=== PATIENT | male | born 1960 | race African-American/Black ===

== ENCOUNTER 2018-12-24 21:48 | Inpatient (IN) ==
[2018-12-24] MEDS ORDERED: ADENOCARD ONE (21:57)
[2018-12-24] MEDS ORDERED: NS 1,000 ML ONE (22:01)
[2018-12-24] MEDS ORDERED: ADENOCARD IV ONE (22:02)
[2018-12-24] MEDS ORDERED: NS 1,000 ML IV ONE (22:04)
[2018-12-24] MEDS ORDERED: ASPIRIN ONE (22:05)
[2018-12-24] MEDS ORDERED: ASPIRIN PR ONE (22:06)
[2018-12-24] MEDS ORDERED: ASPIRIN PO ONE (22:06)
[2018-12-24 22:28] LABS: BASO# 0.03 X1000 (0.0-0.2); BASO% 0.4 % (0.0-0.8); EOS# 0.09 X1000 (0.0-0.7); EOS% 1.1 % (0.0-10.0); HEMATOCRIT 47.2 % (42.0-52.0); HEMOGLOBIN 16.3 g/dL (14.0-18.0); IMM GRAN# 0.02 X1000 (0.0-0.04); IMM GRAN% 0.2 % (0.0-0.5); LYMPH# 2.44 X1000 (1.2-3.4); LYMPH% 30.1 % (20.5-51.1); MCH 30.6 PG (27-31); MCHC 34.5 g/dL (33-37); MCV 88.6 FL (81-99); MONO# 0.61 X1000 (0.11-0.59); MONO% 7.5 % (1.7-9.3); MPV 9.6 FL (7.4-10.4); NEUT# 4.91 X1000 (1.4-6.5); NEUT% 60.7 % (42.2-75.2); PLT 256 X1000 (130-400); RBC 5.33 XMIL (4.7-6.1)
[2018-12-24 22:39] LABS: INR 0.85; PROTIME 12.1 Seconds (11.0-16.0); PTT 28.8 Seconds (22.3-41.8)
[2018-12-24 22:43] LABS: AGAP 12; ALBUMIN 4.4 g/dL (3.5-5.0); ALKALINE PHOSPHATASE 113 U/L (32-122); BUN 8 mg/dL (8-22); CALCIUM 9.2 mg/dL (8.8-10.2); CHLORIDE 99 mmol/L (98-107); COSMO 284; CREATININE 0.9 mg/dL (0.7-1.2); ESTIMATED GFR > 60; GLUCOSE 108 mg/dL (70-104); GOT 43 U/L (10-34); GPT 33 U/L (10-44); POTASSIUM 3.5 mmol/L (3.5-5.1); SODIUM 143 mmol/L (136-145); TCO2 32 mmol/L (25-35); TOTAL PROTEIN 6.8 g/dL (6.3-8.3)
[2018-12-24 22:47] LABS: CK PROFILE 207 U/L (24-204)
[2018-12-24 23:07] LABS: CK INDEX 1.3 (0.0-2.5); CK-MB 2.71 ng/mL (0.0-5.0)
[2018-12-25] MEDS ORDERED: ZOFRAN IV PRN (00:11)
[2018-12-25] MEDS ORDERED: MORPHINE IV PRN (00:12)
--- NOTE | 2018-12-25 00:13 | PROVIDER DOCUMENTATION ---
This chart was entered by Linda Martinez Scribe, acting as scribe for Jaylen Alfonso MD. HPI-Cardiac General - General Chief Complaint: Chest Pain Stated Complaint: CHEST PAIN Time Seen by Provider: 12/24/18 22:05 Source: patient Allergies/Adverse Reactions: Patient Allergies Allergy/AdvReac Type Severity Reaction Status Date / Time No Known Allergies Allergy Verified 12/24/18 22:01 Home Medications: Home Medication List Medication Instructions Recorded Confirmed Last Taken Type LISINOpril [Prinivil] 20 mg PO DAILY #30 tablet 08/26/15 11/04/18 06/13/16 Rx Metoprolol Succinate E.r. [Toprol 100 mg PO DAILY #30 tablet 08/26/15 11/04/18 0 06/13/16 Rx Xl] Furosemide [Lasix] 20 mg PO DAILY 07/24/16 11/04/18 Unknown History Ketorolac [Toradol] 10 mg PO Q6H PRN PRN 5 Days #20 tab 11/04/18 Unknown Rx - History of Present Illness-Cardiac Nature of Presenting Problem: Patient is a 58 year old male who presents to the ED with palpitations. Patient states feels like his heart is racing. Patient states chest pain and shortness of breath. Patient states history of SVT. Patient states symptoms started 2 hours prior to arrival. Location: reports: central Quality of Pain: reports: pressure Severity in ED: mild Onset/Duration: 1-3 hours ago (2 hours ago) Timing: still present Context/Activities at Onset: reports: light activity Modifying Factors: improves with: nothing Palpitation Quality: fast/pounding heart beat (fast) History of arrythmia: reports: SVT Recent use of:: reports: no stimulants Associated Symptoms: reports: shortness of breath Similar Symptoms Previously?: No Recently Seen Here or By Another Healthcare Provider: No Review of Systems - Adult - REVIEW OF SYSTEMS - ADULT Constitutional: reports: no symptoms reported Eyes: reports: no symptoms reported Ears, Nose, Mouth & Throat: reports: no symptoms reported Cardiovascular: reports: chest pain, palpitations. denies: heart murmur Respiratory: reports: shortness of breath. denies: cough, wheezing Gastrointestinal: reports: no symptoms reported Genitourinary: reports: no symptoms reported Musculoskeletal: reports: no symptoms reported Integumentary: reports: no symptoms reported Neurological: reports: no symptoms reported Psychiatric: reports: no symptoms reported Endocrine: reports: no symptoms reported Hematologic/Lymphatic: reports: no symptoms reported Allergic/Immunologic: reports: no symptoms reported All Other Systems: Reviewed and Negative Past History - Adult - PAST MEDICAL HISTORY-ADULT Review of Records: reports: Nursing Assessment Review, Medications Reviewed, Social history reviewed & non-contributory. Major Childhood Illnesses: reports: denies history Cardiovascular: reports: arrhythmia (svt), HTN Respiratory: reports: denies history Gastrointestinal: reports: denies history Obstetrical/Gynecological: reports: denies history Genitourinary: reports: denies history Musculoskeletal: reports: denies history Neurological: reports: denies history Psychiatric: reports: denies history Endocrine/Immune: reports: denies history Other Conditions: reports: denies history - PRIOR SURGERIES/PROCEDURES Surgical/Procedure History: reports: reviewed, not pertinent - PRIOR HOSPITALIZATIONS Prior Hospitalizations: reports: for other non-related - IMMUNIZATION STATUS Childhood Immunizations: See Nurse Assessment Flu Vaccine: See Nurse Assessment - FAMILY HISTORY Family History: reviewed, not pertinent - SOCIAL HISTORY Smoking: cigarettes (former) Substance Use: denies Physical Exam-General - PHYSICAL EXAM-ADULT Initial Vital Signs Reviewed: Yes - CONSTITUTIONAL General Appearance: alert, no apparent distress - RESPIRATORY Respiratory: chest non-tender, lungs clear, normal breath sounds - CARDIOVASCULAR Cardiovascular: normal peripheral pulses, tachycardia - GASTROINTESTINAL (ABDOMEN) Abdominal Exam: normal bowel sounds, non tender, soft - MUSCULOSKELETAL Extremity: non-tender, normal inspection - SKIN Integumentary: normal color, normal turgor, warm/dry - NEUROLOGIC Neurologic: grossly normal, no motor/sensory deficits - PSYCHIATRIC Psych/Mental Status: normal mood/affect, oriented x 3 - HEART Score HEART Score: History: Slightly Suspicious HEART Score: ECG: Non-Specific Repolarization Disturbance/LBBB/PM HEART Score: Age: 45-65 Years HEART Score: Risk Factors for Atherosclerotic Disease: 1 or 2 Risk Factors HEART Score: Troponin: < or = Normal Limit Total HEART Score:: 3 Progress - PLAN OF CARE/RESULTS Progress/Plan/Lab Results: Vital Signs - 8 hr 12/24/18 21:56 12/24/18 22:11 12/24/18 23:20 Temperature 98.0 F Pulse Rate 175 H 100 H 104 H Respiratory Rate 16 16 16 Blood Pressure 136/104 149/98 129/87 O2 Sat by Pulse Oximetry 95 97 98 Laboratory Results - last 24 hr 12/24/18 12/24/18 12/24/18 22:01 22:01 22:01 WBC 8.10 RBC 5.33 Hgb 16.3 Hct 47.2 MCV 88.6 MCH 30.6 MCHC 34.5 RDW Std Deviation 14.0 Plt Count 256 MPV 9.6 Immature Gran % (Auto) 0.2 Neut % (Auto) 60.7 Lymph % (Auto) 30.1 [place] % (Auto) 7.5 Eos % (Auto) 1.1 Baso % (Auto) 0.4 Immature Gran # (Auto) 0.02 Neut # (Auto) 4.91 Lymph # (Auto) 2.44 [place] # (Auto) 0.61 H Eos # (Auto) 0.09 Baso # (Auto) 0.03 PT INR PTT (Actin FS) Sodium 143 Potassium 3.5 Chloride 99 Carbon Dioxide 32 Anion Gap 12 BUN 8 Creatinine 0.9 Estimated GFR/1.73 m2 > 60 BUN/Creatinine Ratio 9 Glucose 108 H Calculated Osmolality 284 Calcium 9.2 Total Bilirubin 0.30 AST 43 H ALT 33 Alkaline Phosphatase 113 Creatine Kinase 207 H Creatine Kinase Index 1.3 CK-MB (CK-2) 2.71 Troponin T Ogr-U-Kpxprlmourc Pept 649 H Total Protein 6.8 Albumin 4.4 Globulin 2.0 Albumin/Globulin Ratio 2.0 12/24/18 12/24/18 22:01 22:01 WBC RBC Hgb Hct MCV MCH MCHC RDW Std Deviation Plt Count MPV Immature Gran % (Auto) Neut % (Auto) Lymph % (Auto) [place] % (Auto) Eos % (Auto) Baso % (Auto) Immature Gran # (Auto) Neut # (Auto) Lymph # (Auto) [place] # (Auto) Eos # (Auto) Baso # (Auto) PT 12.1 INR 0.85 PTT (Actin FS) 28.8 Sodium Potassium Chloride Carbon Dioxide Anion Gap BUN Creatinine Estimated GFR/1.73 m2 BUN/Creatinine Ratio Glucose Calculated Osmolality Calcium Total Bilirubin AST ALT Alkaline Phosphatase Creatine Kinase Creatine Kinase Index CK-MB (CK-2) Troponin T < 0.010 [id number] Pept Total Protein Albumin Globulin Albumin/Globulin Ratio Orders Category Date Time Status Admit - [facility] Routine AdmDCTranf 12/25/18 00:08 Active Cardiac Monitoring DIRECTED Care 12/24/18 22:07 Active Oxygen Therapy- ED Nursing DIRECTED Care 12/24/18 22:07 Active Saline Loc NOW Care 12/24/18 22:07 Active CHEST-1 VIEW [RAD] Stat Exams 12/24/18 22:52 Taken CBC WITH ELECTRONIC DIFF [HEME] Stat Lab 12/24/18 22:01 Completed CK PROFILE [SP CHEM] Stat Lab 12/24/18 22:01 Completed COMPREHENSIVE METABOLIC PANEL [CHEM] Stat Lab 12/24/18 22:01 Completed PRO B-NATRIURETIC PEPTIDE Stat Lab 12/24/18 22:01 Completed PROTIME WITH INR [COAG] Stat Lab 12/24/18 22:01 Completed PTT [COAG] Stat Lab 12/24/18 22:01 Completed TROPONIN T Q8HR Lab 12/25/18 05:00 Uncollected TROPONIN T Q8HR Lab 12/25/18 13:00 Uncollected TROPONIN T Q8HR Lab 12/25/18 21:00 Uncollected TROPONIN T Q8HR Lab 12/26/18 05:00 Uncollected TROPONIN T Q8HR Lab 12/26/18 13:00 Uncollected TROPONIN T Q8HR Lab 12/26/18 21:00 Uncollected TROPONIN T Stat Lab 12/24/18 22:01 Completed 0.9% Sodium Chloride Inj [Ns] 1,000 ml Med 12/24/18 22:01 Discontinued .ROUTE As directed 0.9% Sodium Chloride Inj [Ns] 1,000 ml Med 12/24/18 22:04 Discontinued IV 999 mls/hr Adenosine [Adenocard] Med 12/24/18 21:57 Discontinued 18 mg .ROUTE .STK-MED ONE Adenosine [Adenocard] Med 12/24/18 22:02 Discontinued 6 mg IV NOW ONE Aspirin Med 12/24/18 22:[address] NOW ONE Aspirin Med 12/24/18 22:05 Discontinued 325 mg .ROUTE .STK-MED ONE Aspirin Med 12/24/18 22:06 Discontinued 325 mg PO NOW ONE Morphine Med 12/25/18 00:12 Ordered 2 mg IV Q2H PRN PRN Ondansetron [Zofran] Med 12/25/18 00:11 Ordered 4 mg IV Q8H PRN PRN CP/SOB/Palp >45 yrs of Age Stat Oth 12/24/18 22:06 Ordered EKG [EKG] Stat Ther 12/24/18 22:07 Ordered Transfer/Admit Order [TRANSFER] Routine Transfer 12/25/18 00:10 Ordered Result Diagrams: 12/24/18 22:01 12/24/18 22:01 - REASSESSMENT Reassessment #1 Time Reassessed: 10:07 Status: improving (patient received 6 mg of Adenosine IV. patient's heart rate decreased to 101.) - EKG 1 Time of EKG reading by physician:: 21:58 EKG Read and Signed by:: Jaylen Alfonso EKG Interpretation (*Must complete 3 of following elements*): Abnormal (marked ST abnormality, possible inferior subendocardial injury) Rate: 176 Rhythm: supraventricular tachycardia [place]: right QRS: RBB (incomplete) Comments: septal infarct, age undetermined; 2 Time of EKG reading by physician:: 22:06 EKG Read and Signed by:: Jaylen Alfonso EKG Interpretation (*Must complete 3 of following elements*): Abnormal Rate: 104 Rhythm: sinus tachycardia [place]: right Comments: left atrial enlargement; cannot rule out anterior infarct, age undetermined - CONSULTS/PCP/HOSPITALIST Notification #1 *Consult/PCP/Hospitalist*: Dr. Brewer Time Discussed: 00:08 Reason/Comments: Dr. Alfonso consulted with Dr. Brewer about patient. Consult Disposition: Admit Departure - Departure Date of Disposition Decision: 12/25/18 Time of Disposition Decision: 00:09 DIAGNOSIS: SVT (supraventricular tachycardia), Chest pain Disposition: ADMITTED INPATIENT 09 Certified Medical Emergency: Emergent Condition: Good Referrals and Follow-Ups: None,PCP [Primary Care Provider] - - Critical Care Note This patient required my direct & personal management of CC.: Yes Total Time (mins): 31 Critical Care Statement: This patient required my direct personal management to treat or rule out processes, the absence of which, could potentiallly result in sudden, clinically significant life or limb threatening deterioration. Attestation - Physician/ ELIANA Attestation Patient care was provided by Advanced Practice Provider:: No The physician spent face to face time with patient:: Yes Advanced Practice Provider documentation review:: Supervising physician onsite and consulted in the evaluation and care of this patient. The physician did have a face to face encounter with the patient. This chart was documented by the indicated scribe, (Linda Martinez, Amber) and accurately reflects the services I performed and decisions made by me, Jaylen Alfonso MD, as attested by the provider's signature.
--- NOTE | 2018-12-25 07:23 | Diag Imaging Result Doc PS360 ---
CHEST-1 VIEW - 12/24/2018 INDICATION: cp COMPARISON: 11/04/2018, 11/19/2015 FINDINGS: The lungs are normally expanded and clear. Heart size and mediastinal contours are normal. No pneumothorax or pleural effusion. IMPRESSION: Negative exam. Electronically signed by Raúl Jones 12/25/2018 7:20 AM
[2018-12-25] MEDS: TOPROL XL PO SCH (09:32)
[2018-12-25] MEDS: PRINIVIL PO SCH (09:32)
[2018-12-25] MEDS: ASPIRIN PO SCH (09:33)
[2018-12-25] MEDS: LASIX PO SCH (09:33)
--- NOTE | 2018-12-25 10:00 | HISTORY AND PHYSICAL ---
PRIMARY CARE PHYSICIAN: [facility]. CHIEF COMPLAINT: Chest pain, shortness of breath, palpitations that began approximately 2 hours prior to arrival. HISTORY OF PRESENTING ILLNESS: This is a 58-year-old male who presents to [facility] ER with complaints of chest pain, shortness of breath and palpitations that began approximately 2 hours prior to arrival. He denied any radiating of his symptoms. He denied any nausea or diaphoresis, dizziness. When he arrived to the emergency room, we obtained an EKG that showed SVT at 176. His chest x-ray showed a negative exam. His cardiac enzymes x2 sets were negative. His heart score was 3, so he was admitted for further evaluation and treatment. PAST MEDICAL HISTORY: SVT and hypertension. PAST SURGICAL HISTORY: Knee surgery. FAMILY HISTORY: Reviewed and noncontributory. SOCIAL HISTORY: Currently lives alone. He is a half a pack a day smoker and has done so for 35 years. Drinks 1-1/2 pints of liquor on Wednesday, Wednesday and Sundays, but does not drink during the week and denies any illicit drug use. ALLERGIES: He has no known drug allergies. HOME MEDICATIONS: We will hold his Toradol p.r.n. We need to update and confirm all of his home medications and dosages. Lasix 20 mg p.o. daily, lisinopril 20 mg p.o. daily, and metoprolol 100 mg p.o. daily. LABORATORY DATA: Showed a white blood cell count of 8.10, hemoglobin 16.3, hematocrit 47.2, platelets 256,000. PT and INR of 12.1 and 0.85. Sodium of 143, potassium 3.5, chloride 99, CO2 32, BUN of 8, creatinine 0.9, glucose 108. Cardiac enzymes x2 sets were negative. ProBNP of 649. EKG showed SVT at 176 on arrival. IMAGING: Chest x-ray showed a negative exam. REVIEW OF SYSTEMS: He denied any fever, chills, blurred vision, dizziness. He was positive for chest pain, left-sided with palpitations and shortness of breath. Denied any cough, abdominal pain, constipation, diarrhea, burning or hurting with urination. PHYSICAL EXAMINATION: VITALS: On arrival, he had a temperature of 98 degrees, pulse was 175, respirations 16, blood pressure 136/104. Saturating 95% on room air. Currently, his pulse is 97 to 100. GENERAL: This is a 58-year-old male who is lying in the bed and answers questions appropriately. HEENT: Normocephalic, atraumatic. Normal ENT inspection. Oropharynx and nares are clear. EYES: Pupils are equal, round, reactive to light and accommodation. Extraocular movements are intact. NECK: Normal inspection. Normal range of motion. LUNGS: Clear to auscultation bilaterally with equal lung expansion and chest wall movement. HEART: Regular rate and rhythm at this time, but he did have SVT at 176 on arrival and was given adenosine 6 mg IV total. No murmurs, rubs, or gallops noted. ABDOMEN: Soft, nontender, nondistended. Bowel sounds are present x4 quadrants. MUSCULOSKELETAL: 5/5 strength x4 extremities. NEUROLOGICAL: The cranial nerves 2-12 appear grossly intact. ASSESSMENT: 1. Supraventricular tachycardia, resolved, now in normal sinus rhythm. 2. Chest pain, now resolved with resolving his SVT. 3. Hypertension. 4. Tobacco abuse. 5. Ethanol abuse. PLAN: 1. He was admitted to the Medical Unit at [place]. We will place on a healthy heart diet. Place on telemetry. 2. Aspirin 81 mg p.o. daily. We will continue his home medications. Place on morphine 2 mg IV q.2 hours p.r.n. Complete his troponin series for the 3 sets total. Check an echocardiogram in the a.m. and further orders after seen by attending. Dictated by ARNOL Manriquez for Edda Brewer MD cc: ARNOL Manriquez MD
--- NOTE | 2018-12-25 12:16 | HISTORY AND PHYSICAL ---
ADDENDUM: I saw the patient [id number] and fully agree with the assessment and plan of my nurse practitioner, Alexia Parrish. This is a 58-year-old gentleman who was admitted through the emergency room with paroxysmal supraventricular tachycardia, for which he had to receive adenosine with which it has been converted to sinus rhythm. He had chest pain at the time that has now resolved. He has history of hypertension and alcohol/tobacco abuse as well. He is admitted here at [facility] and we are going to give him aspirin and obtain serial cardiac enzymes to rule out any myocardial ischemic event. We will get an echocardiogram in the morning and he can probably be discharged home tomorrow if remains stable. cc: Edda Brewer MD
--- NOTE | 2018-12-25 17:21 | EKG Report ---
Test Performed on : 12/25/2018 09:13:07 AM Test Reason : PSVT Blood Pressure : / mmHG Vent. Rate : 085 BPM Atrial Rate : 085 BPM P-R Int : 138 ms QRS Dur : 108 ms QT Int : 386 ms P-R-T Axes : 071 092 046 degrees QTc Int : 459 ms Normal sinus rhythm. Possible Left atrial enlargement Rightward axis Borderline ECG When compared with ECG of 24-DEC-2018 22:06, (Unconfirmed) Previous ECG has undetermined rhythm, needs review Unconfirmed Result
--- NOTE | 2018-12-26 08:51 | EKG Report ---
Test Performed on : 12/24/2018 9:58:37 PM Test Reason : SDA Blood Pressure : / mmHG Vent. Rate : 176 BPM Atrial Rate : 178 BPM P-R Int : 000 ms QRS Dur : 112 ms QT Int : 276 ms P-R-T Axes : 000 106 -36 degrees QTc Int : 472 ms Supraventricular tachycardia. Rightward axis Incomplete right bundle branch block Septal infarct , age undetermined Marked ST abnormality, possible inferior subendocardial injury Abnormal ECG When compared with ECG of 19-NOV-2015 17:59, Significant changes have occurred Unconfirmed Result
--- NOTE | 2018-12-26 09:24 | EKG Report ---
Test Performed on : 12/24/2018 10:06:30 PM Test Reason : SDA Blood Pressure : / mmHG Vent. Rate : 104 BPM Atrial Rate : 104 BPM P-R Int : 154 ms QRS Dur : 102 ms QT Int : 370 ms P-R-T Axes : 063 098 033 degrees QTc Int : 486 ms Sinus tachycardia. Left atrial enlargement Rightward axis Cannot rule out Anterior infarct (cited on or before 24-DEC-2018) Abnormal ECG When compared with ECG of 24-DEC-2018 21:58, (Unconfirmed) Vent. rate has decreased BY 72 BPM Incomplete right bundle branch block is no longer present Serial changes of evolving Anterior infarct present Unconfirmed Result
[2018-12-26 09:28] LABS: AGAP 16; BUN 9 mg/dL (8-22); CALCIUM 8.8 mg/dL (8.8-10.2); CHLORIDE 99 mmol/L (98-107); COSMO 275; CREATININE 0.9 mg/dL (0.7-1.2); ESTIMATED GFR > 60; GLUCOSE 105 mg/dL (70-104); POTASSIUM 3.8 mmol/L (3.5-5.1); SODIUM 138 mmol/L (136-145); TCO2 23 mmol/L (25-35)
[2018-12-26] MEDS: PRINIVIL PO SCH (09:36)
[2018-12-26] MEDS: ASPIRIN PO SCH (09:36)
[2018-12-26] MEDS: TOPROL XL PO SCH (09:36)
[2018-12-26] MEDS: LASIX PO SCH (09:36)
--- NOTE | 2018-12-26 11:54 | EKG Report ---
Test Performed on : 12/26/2018 10:16:11 AM Test Reason : SVT,PVC Blood Pressure : / mmHG Vent. Rate : 073 BPM Atrial Rate : 073 BPM P-R Int : 140 ms QRS Dur : 100 ms QT Int : 422 ms P-R-T Axes : 070 101 060 degrees QTc Int : 464 ms Normal sinus rhythm. Possible Left atrial enlargement Rightward axis Cannot rule out Anterior infarct , age undetermined Abnormal ECG When compared with ECG of 25-DEC-2018 09:13, (Unconfirmed) No significant change was found Unconfirmed Result
[2018-12-26] MEDS: LANOXIN PO SCH (14:47)
--- NOTE | 2018-12-26 15:58 | PROGRESS NOTE ---
DATE: 12/26/2018 SUBJECTIVE: The patient states he is feeling a little bit better, having some cough and congestion, but notes his chest pain is better. PHYSICAL EXAM: Temperature 98.2, pulse 74, respiratory rate 20, BP 140/94.General: The patient is awake, alert. He is in no current distress. HEENT: Normocephalic. Neck: Supple. Cardiovascular: Currently, regular rate and rhythm. Abdomen: Soft. Extremities: Moves all extremities. ASSESSMENT: 1. Supraventricular tachycardia. The patient continues to have episodes of elevated rate. Therefore, we will transfer him to [facility] for Cardiology's input. 2. Chest pain. Appears related to his supraventricular tachycardia, currently resolved. 3. Hypertension. 4. Chronic tobacco abuse. 5. Chronic alcohol abuse. PLAN: We will continue the patient in the hospital. Will transfer to [facility] for Cardiology's input. cc: Enoc Zafar MD
[2018-12-26] MEDS ORDERED: PRINIVIL PO ONE (16:15)
--- NOTE | 2018-12-26 17:24 | CARDIOLOGY CONSULTATION ---
DATE: 12/26/2018 CHIEF COMPLAINT: Chest pain, palpitations, dyspnea. HISTORY: Mr. Umana is a 58-year-old black gentleman who is known to our service. He presented to the emergency room at [facility] on December 24 somewhere around 10 p.m. He reported having discomfort in the chest associated with palpitations. The nurses over there gave IV adenosine after a diagnosis of supraventricular tachycardia was made. The initial ECG showed a heart rate of 176 beats per minute. After the adenosine 6 mg dose he converted. The patient has maintained sinus rhythm. Apparently on telemetry they have detected runs of nonsustained ventricular tachycardia for which they chose to send the patient to [facility], believing that there was some additional cardiac testing that needed to be done. The patient at the time of my evaluation is not having any chest pain, shortness of breath, or palpitations. I am seeing him at about 3 p.m. He seems to be comfortable. An echocardiogram has been ordered and should be done within the next hour or so. PAST MEDICAL HISTORY: Positive for hypertension. Patient has a history of nonischemic dilated cardiomyopathy. He has had a prior heart catheterization performed by our group I believe in 2016. Coronary arteries were normal. He has had prior knee surgery. SOCIAL HISTORY: He is single. 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 He lives at home. He is a smoker of a half a pack a day for many years. He drinks some alcohol on the weekends. Denies illicit drugs. FAMILY HISTORY: Father had hypertension. HOME MEDICATIONS: Listed and at this time include furosemide, lisinopril, metoprolol, and Toradol. The doses need to be confirmed. Metoprolol appears to be 100, lisinopril 20, and furosemide 20. REVIEW OF SYSTEMS: Noncontributory. PHYSICAL EXAMINATION: Blood pressure 155/87, temperature 98.2 degrees, pulse 70, respirations 18. General: Patient is awake, alert, oriented, in no distress. HEENT: Unremarkable. Chest: Clear to auscultation and percussion. Heart: Sounds regular and rhythmic. No gallop or murmur. Abdomen: Nontender, soft. No masses. No hepatomegaly. Extremities: Showed no edema. Pulses are diminished. Neurological: Nonfocal. Moves 4 extremities. LABORATORY: Sodium 138, potassium 2.8, BUN 9, creatinine 0.9. Chloride, carbon dioxide normal. Magnesium 1.8. CK 207. Troponin x4 negative. Chest x-ray, no acute abnormalities. EKG post conversion is normal. IMPRESSIONS: 1. Patient who presented with supraventricular tachycardia, symptomatic.(palpitations reported). 2. History of nonischemic dilated cardiomyopathy. 3. Nonsustained ventricular tachycardia. 4. History of hypertension. RECOMMENDATION: At this time we will do an echocardiogram to confirm that his ejection fraction is still normal. If the echo is unremarkable, I would suggest to put him on low-dose digoxin to minimize the spells of SVT, abstain from alcohol and tobacco, and he will be followed at the office. There will be no need for any further intervention. cc: Jose Bañuelos MD MTDD
--- NOTE | 2018-12-26 21:33 | ECHO REPORT ---
ORDER DATE: 12/26/2018 MEASUREMENTS: Left ventricular internal diameter in diastole 5.2, end systole 4.5, septal thickness 1.0, left atrium 3.4, aortic root 3.1. SUMMARY: 1. Fair quality study. Intravenous echo contrast agent Definity was utilized to enhance endocardial definition. 2. Aortic valve is trileaflet and opens normally on 2-dimensional images. Peak gradient across aortic valve is less than 10 mmHg. Mitral and tricuspid valves are without evidence of structural abnormality while pulmonic valve is not well demonstrated. There is very mild mitral regurgitation. Aortic root is normal in size. 3. Normal left ventricular dimensions suggested. Estimated left ejection fraction approximately 35% in the setting of global hypokinesis. Doppler suggests grade 1 left ventricular diastolic dysfunction. Left atrium, right atrium, right ventricle are grossly normal in size with grossly preserved right ventricular systolic function. 4. No pericardial effusion. 5. Appearance of inferior vena cava suggests normal central venous pressure. cc: MD Alexia Reed CRNP
--- NOTE | 2018-12-27 07:54 | EKG Report ---
Test Performed on : 12/27/2018 07:46:38 AM Test Reason : svt Blood Pressure : / mmHG Vent. Rate : 065 BPM Atrial Rate : 065 BPM P-R Int : 152 ms QRS Dur : 104 ms QT Int : 444 ms P-R-T Axes : 058 092 043 degrees QTc Int : 461 ms Normal sinus rhythm. Possible Left atrial enlargement Rightward axis Borderline ECG When compared with ECG of 26-DEC-2018 10:16, (Unconfirmed) No significant change was found Unconfirmed Result
[2018-12-27] MEDS: LANOXIN PO SCH (08:50)
[2018-12-27] MEDS: ASPIRIN PO SCH (08:50)
[2018-12-27] MEDS: TOPROL XL PO SCH (08:50)
[2018-12-27] MEDS: LASIX PO SCH (08:50)
[2018-12-27] MEDS: PRINIVIL PO SCH ×2 (08:51→23:13)
[2018-12-27] MEDS ORDERED: ATIVAN IV PRN (14:05)
[2018-12-27] MEDS ORDERED: NICODERM PATCH TD PRN (14:08)
--- NOTE | 2018-12-27 14:21 | PROGRESS NOTE ---
DATE: 12/27/2018 SUBJECTIVE: Patient resting in bed. Not in any obvious distress. The patient had presented to [facility], and was found to have a paroxysmal supraventricular tachycardia, and seemed to have responded to adenosine. He was transferred to this institution for further management. OBJECTIVE: On examination, his vital signs are as follows: Temperature is 98 degrees, pulse 65, respiratory rate 22, and blood pressure is 144/90, and oxygen saturation is 100%.HEENT: He is atraumatic, and normocephalic. Cardiovascular: S1, S2. Tachycardic. Respiratory: He has evidence of good air entry bilaterally. Abdomen: Soft, nontender. No masses felt. Extremities: No evidence of edema. Central nervous system: No obvious focal deficit noted. LABORATORY DATA: Sodium is 138, potassium 3.8, chloride is 99, bicarb 23, BUN is 9, and creatinine 0.9. 2D echo of the heart shows normal LV dimensions. The estimated left ejection fraction approximately 35% in the setting of global hypokinesia. Doppler suggests grade 1 left ventricular diastolic dysfunction. ASSESSMENT AND PLAN: 1. Supraventricular tachycardia now transitioned to normal sinus rhythm. Rate controling agent per Cardiology team. 2. Atypical chest pain. Maintain patient on aspirin, beta joshua, and nitroglycerin paste on a p.r.n. basis. 3. Hypertension. Optimize blood pressure control. 4. Tobacco use history. Recommend nicotine patch. 5. Alcoholism. Recommend delirium tremens prophylaxis along with thiamine, folic acid, multivitamin, check magnesium and phosphorus level, and replace those if needed. 6. Deep vein thrombosis prophylaxis. Lovenox. cc: Hernan Stockton MD MTDKyle
[2018-12-27] MEDS ORDERED: SODIUM CHLORIDE 0.9% INJ SCH (14:30)
[2018-12-27] MEDS: NITROGLYCERIN TOP SCH ×2 (15:38→23:13)
[2018-12-27] MEDS: FOLIC ACID PO SCH (15:38)
[2018-12-27] MEDS: PROTONIX IV SCH (15:39)
--- NOTE | 2018-12-27 19:56 | CARDIOLOGY PROGRESS NOTE ---
DATE: 12/27/2018 CHIEF COMPLAINT: Tachycardia, palpitations. SUBJECTIVE: Mr. Umana has not experienced any further palpitations. His telemetry shows no recurrent ventricular tachycardia. The last time it happened was when he was at [facility] [place] early in the morning yesterday. Echocardiogram was done yesterday, read by Dr. Nichole, and it indicates that his ejection fraction is 35%. The ventricle is globally hypokinetic. Of note, his proBNP level was 649, which is only minimally elevated. All his troponins are negative. He has had a previous negative cardiac catheterization. OBJECTIVE: Vital Signs: Blood pressure 166/94, pulse 66, temperature 98 degrees, respirations 22. General: Awake, alert and oriented, in no distress. HEENT: Unremarkable. Chest: Clear to auscultation and percussion. Cardiovascular: Heart sounds regular and rhythmic. No gallop or murmur. Abdomen: Nontender. Extremities: Show no edema. Neurological: Follows commands. Moves all 4 extremities. IMPRESSION: 1. Patient who presented with supraventricular tachycardia. This was treated with adenosine, and it responded well. 2. Nonsustained ventricular tachycardia. This happened incidentally.(asymptomatic). 3. Nonischemic dilated cardiomyopathy. 4. History of hypertension. RECOMMENDATIONS: At this time I would suggest to maximize his metoprolol, and probably make it 200 mg a day, and then see how he does. I think he could probably go home tomorrow. Perhaps a suggestion of wearing a 30-day CE monitor may be good to see if he is having recurrent V-tach. He needs to be reassessed at the office to determine whether or not he would be a candidate for a defibrillator, although I believe that if he remains compliant to his beta joshua therapy+ MELI inhibitor, his ejection fraction should gradually improve. Thank you for the opportunity to participate in this patient's evaluation. cc: Jose Bañuelos MD [facility]
[2018-12-28] MEDS: NITROGLYCERIN TOP SCH ×4 (05:07→18:34)
[2018-12-28 06:05] LABS: BASO# 0.03 X1000 (0.0-0.2); BASO% 0.4 % (0.0-0.8); EOS# 0.16 X1000 (0.0-0.7); EOS% 1.9 % (0.0-10.0); HEMATOCRIT 46.2 % (42.0-52.0); HEMOGLOBIN 15.8 g/dL (14.0-18.0); IMM GRAN# 0.03 X1000 (0.0-0.04); IMM GRAN% 0.4 % (0.0-0.5); LYMPH# 1.67 X1000 (1.2-3.4); MCH 30.6 PG (27-31); MCHC 34.2 g/dL (33-37); MCV 89.4 FL (81-99); MONO# 0.66 X1000 (0.11-0.59); MONO% 7.9 % (1.7-9.3); MPV 10.1 FL (7.4-10.4); NEUT# 5.82 X1000 (1.4-6.5); NEUT% 69.4 % (42.2-75.2); PLT 225 X1000 (130-400); RBC 5.17 XMIL (4.7-6.1); RDW 13.3 % (11.5-14.5); WBC 8.37 X1000 (4.8-10.8)
[2018-12-28 07:17] LABS: MAGNESIUM 1.9 mg/dL (1.5-2.7); PHOSPHORUS 4.2 mg/dL (2.7-4.5)
[2018-12-28 07:31] LABS: AGAP 12; ALB/GLOB RATIO 2.5; ALBUMIN 4.2 g/dL (3.5-5.0); ALKALINE PHOSPHATASE 89 U/L (32-122); BUN 20 mg/dL (8-22); CALCIUM 9.4 mg/dL (8.8-10.2); CHLORIDE 102 mmol/L (98-107); COSMO 278; ESTIMATED GFR > 60; GLUCOSE 99 mg/dL (70-104); GOT 14 U/L (10-34); GPT 19 U/L (10-44); POTASSIUM 4.3 mmol/L (3.5-5.1); SODIUM 138 mmol/L (136-145); TCO2 24 mmol/L (25-35); TOTAL BILIRUBIN 0.44 mg/dL (0.20-1.00); TOTAL PROTEIN 5.9 g/dL (6.3-8.3)
[2018-12-28] MEDS ORDERED: CENTRUM SILVER PO SCH (09:00)
[2018-12-28] MEDS ORDERED: TOPROL XL PO SCH (09:00)
[2018-12-28] MEDS ORDERED: VITAMIN B-1 PO SCH (09:00)
[2018-12-28] MEDS: LASIX PO SCH (09:55)
[2018-12-28] MEDS: PRINIVIL PO SCH (09:56)
[2018-12-28] MEDS: FOLIC ACID PO SCH (09:56)
[2018-12-28] MEDS: ASPIRIN PO SCH (09:56)
[2018-12-28] MEDS: LANOXIN PO SCH (09:57)
[2018-12-28] MEDS: PROTONIX IV SCH (14:48)
[2018-12-28 19:56] VITALS: BP 135/80
--- NOTE | 2018-12-29 02:25 | DISCHARGE SUMMARY ---
ADMISSION DATE: 12/24/2018 DISCHARGE DATE: 12/28/2018 DISCHARGE DIAGNOSES: 1. Supraventricular tachycardia. 2. Nonsustained ventricular tachycardia. 3. Supraventricular tachycardia with rapid ventricular rate. 4. Atypical chest pain. 5. Systolic congestive heart failure. 6. Tobacco abuse. 7. Alcohol abuse. 8. Essential hypertension. CONSULTATIONS DURING HOSPITALIZATION: Cardiology, Dr. Bañuelos. DISCHARGE MEDICATIONS: 1. Metoprolol succinate extended release 200 mg daily. 2. Lisinopril 20 mg daily. 3. Digoxin 125 mcg daily. 4. Aspirin 81 mg daily. 5. Furosemide 20 mg daily. 6. Nicotine patch 21 mg topical daily - 14 patches. DISCHARGE PHYSICAL EXAMINATION: Vitals Signs: At the time of discharge, temperature 98 degrees, pulse 62, respiratory rate 20, blood pressure 122/84, saturating 100% on room air. General: The patient does not appear in any acute distress. No pallor, cyanosis, clubbing or icterus. Oral cavity is moist. Lungs: Air entry bilaterally equal. No wheeze, rhonchi or crackles. Cardiovascular: S1, S2 normal. Regular. No murmur, rub or gallop. He did not have any significant telemetric event in the last 12 hours. Abdomen: Soft and nontender. No hepatojugular reflex. Extremities: No lower extremity edema. SIGNIFICANT LABORATORIES DURING HOSPITAL ADMISSION: His hemoglobin was 15.8, WBC of 8.3, platelets of 225,000. He had largely normal electrolytes except for carbon dioxide of 24. Normal kidney function with creatinine of 1. Troponins were negative. No microbiological data during hospital stay. IMAGING: Chest x-ray on admission had no pneumothorax, pulmonary edema or consolidation. EKG on admission had supraventricular tachycardia with incomplete right bundle branch block with heart rate of 176. Echocardiogram had suggested ejection fraction of 35% in the setting of global hypokinesia without any pericardial effusion. HOSPITAL COURSE SUMMARY: Mr. Umana is a 58-year-old man with the above-mentioned past medical history, who had gone to [facility] with chief complaints of chest pain, shortness of breath and palpitation of about 2 hours' duration. In the [facility] he was found to have supraventricular tachycardia with a heart rate of 176, which had become normal sinus rhythm after 6 mg of adenosine intravenous. He was kept there overnight; however, he kept on having nonsustained ventricular tachycardia with occasional sinus tachycardia with a heart rate of 110, so he was transferred to [facility] for further cardiology evaluation. At [facility] he kept on having a few episodes of nonsustained ventricular tachycardia; however, he did not have any supraventricular tachycardia anymore. His dose was titrated with up titrating of his metoprolol and addition of digoxin, which he tolerated well. Echocardiogram had suggested systolic heart failure with ejection fraction of 35% with global hypokinesia. At the time of discharge the patient did not have any signs of acute systolic congestive heart failure on examination. He did not have any telemetry event of nonsustained ventricular tachycardia or supraventricular tachycardia in the last 12 hours. At the time of discharge he was discharged on a higher dose of metoprolol with new addition of digoxin, aspirin, and continued on his lisinopril. He was advised to follow up with his regular behavioral therapist within 5 days and discuss about ambulatory cardiac specialist to detect any episodes of ventricular tachycardia. He was also extensively counseled about the risk of sudden cardiac and the fact that he needs to take his medications regularly to have improvement in ejection fraction. All of his questions have been answered at the bedside. He was provided a slip to get digoxin level done within 5 days of discharge. TIME SPENT: More than 30 minutes were spent in discharging this patient. cc: Yadiel Trejo MD
== END 2018-12-28 20:18 | disposition home or self-care (01) | DRG 309 ==
LOC: P.ED 21:48 → SUATTDRO 21:49 → P.MEDSURG 21:49 → 3N 12-26 12:32
PROVIDERS: ATTEND Internal Medicine
CPT/HCPCS: 71010; 71045; 80048; 80053; 82550; 82553; 83735; 83880; 84100; 84484; 85025; 85610; 85730; 93005; 93010; 93306; 94761; 96361; 96374; 99285; 99291; A9270; C8929; C9113; J0150; J0153; J2270; J7030; Q9957; S0164

== ENCOUNTER 2019-03-17 20:38 | Observation (INO) ==
[2019-03-17] MEDS ORDERED: ASPIRIN ONE (20:43)
[2019-03-17] MEDS ORDERED: ASPIRIN PO ONE ×2 (20:45→20:46)
[2019-03-17 21:09] LABS: BASO# 0.02 X1000 (0.0-0.2); BASO% 0.3 % (0.0-0.8); EOS# 0.09 X1000 (0.0-0.7); EOS% 1.3 % (0.0-10.0); HEMATOCRIT 41.2 % (42.0-52.0); HEMOGLOBIN 14.2 g/dL (14.0-18.0); IMM GRAN# 0.01 X1000 (0.0-0.04); IMM GRAN% 0.1 % (0.0-0.5); LYMPH# 1.89 X1000 (1.2-3.4); MCH 31.1 PG (27-31); MCHC 34.5 g/dL (33-37); MCV 90.2 FL (81-99); MONO# 0.51 X1000 (0.11-0.59); MONO% 7.6 % (1.7-9.3); MPV 9.4 FL (7.4-10.4); NEUT# 4.23 X1000 (1.4-6.5); NEUT% 62.7 % (42.2-75.2); PLT 235 X1000 (130-400); RBC 4.57 XMIL (4.7-6.1); RDW 13.2 % (11.5-14.5); WBC 6.75 X1000 (4.8-10.8)
[2019-03-17 21:18] LABS: INR 0.85; PROTIME 12.1 Seconds (11.0-16.0)
[2019-03-17 21:42] LABS: AGAP 17; BUN 11 mg/dL (8-22); CALCIUM 9.4 mg/dL (8.8-10.2); CHLORIDE 102 mmol/L (98-107); CK PROFILE 158 U/L (24-204); COSMO 287; CREATININE 0.8 mg/dL (0.7-1.2); ESTIMATED GFR > 60; GLUCOSE 115 mg/dL (70-104); POTASSIUM 3.5 mmol/L (3.5-5.1); SODIUM 144 mmol/L (136-145); TCO2 24 mmol/L (25-35)
--- NOTE | 2019-03-17 21:50 | Diag Imaging Result Doc PS360 ---
EXAM: CHEST-PORTABLE HISTORY: CP TECHNIQUE: Portable chest single view COMPARISON: 03/07/2019 FINDINGS: The lungs are well expanded. The heart is mildly prominent. The vessels are not distended. There are no infiltrates. No effusion identified. IMPRESSION: Mildly prominent heart. Electronically signed by Alan Kelly 03/17/2019 9:47 PM
--- NOTE | 2019-03-17 21:56 | EKG Report ---
Test Performed on : 03/17/2019 8:43:35 PM Test Reason : CP Blood Pressure : / mmHG Vent. Rate : 096 BPM Atrial Rate : 096 BPM P-R Int : 140 ms QRS Dur : 112 ms QT Int : 384 ms P-R-T Axes : 069 092 025 degrees QTc Int : 485 ms Normal sinus rhythm. Possible Left atrial enlargement Rightward axis Prolonged QT Abnormal ECG When compared with ECG of 07-MAR-2019 20:41, (Unconfirmed) No significant change was found Unconfirmed Result
[2019-03-18] MEDS ORDERED: NITROGLYCERIN TOP ONE ×2 (00:25→03:05)
--- NOTE | 2019-03-18 00:33 | EKG Report ---
Test Performed on : 03/17/2019 10:52:19 PM Test Reason : CP Blood Pressure : / mmHG Vent. Rate : 094 BPM Atrial Rate : 094 BPM P-R Int : 144 ms QRS Dur : 114 ms QT Int : 404 ms P-R-T Axes : 068 087 012 degrees QTc Int : 505 ms Normal sinus rhythm. Possible Left atrial enlargement Prolonged QT Abnormal ECG When compared with ECG of 17-MAR-2019 20:43, (Unconfirmed) No significant change was found Unconfirmed Result
--- NOTE | 2019-03-18 01:06 | PROVIDER DOCUMENTATION ---
This chart was entered by Alice Alvarenga Scribe, acting as scribe for Alon Gilmore MD. HPI-Chest Pain - General Chief Complaint: Chest Pain Stated Complaint: CHEST PAIN, SOB Time Seen by Provider: 03/17/19 21:13 Source: patient Allergies/Adverse Reactions: Patient Allergies Allergy/AdvReac Type Severity Reaction Status Date / Time No Known Allergies Allergy Verified 12/24/18 22:01 Home Medications: Home Medication List Medication Instructions Recorded Confirmed Last Taken Type LISINOpril [Prinivil] 20 mg PO DAILY #30 tablet 08/26/15 02/27/19 06/13/16 Rx Furosemide [Lasix] 20 mg PO DAILY 07/24/16 02/27/19 Unknown History Aspirin 81 mg PO DAILY #30 chewtab 12/28/18 02/27/19 Unknown Rx Digoxin [Lanoxin] 125 microgm PO DAILY #30 tab 12/28/18 02/27/19 Unknown Rx Metoprolol Succinate E.r. [Toprol 200 mg PO DAILY #60 tab 12/28/18 02/27/19 Unknown Rx Xl] Nicotine Patch [Nicoderm Patch] 21 mg TD DAILY PRN PRN #14 12/28/18 02/27/19 Unknown Rx patch.td24 Magnesium Oxide [Magnesium] 400 mg PO DAILY #10 tab 01/15/19 02/27/19 Unknown Rx Isosorbide Mononitrate E.r. 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 pt sts when cp starts, he begins sweating. pt sts pain is 8/10. pt takes baby aspirin. pt has appt for breathing probs on the . pt has hx of htn, denies dm and high cholesterol. pt has no sx hx. pt has no pcp but followed by Dr. Joshi, pediatric urologist. Location: reports: other (upper sternal) Chest Pain Radiation: reports: neck Onset/Duration: just prior to arrival, 1-3 hours ago Context/Activities at Onset: reports: none Review of Systems - Adult - REVIEW OF SYSTEMS - ADULT Constitutional: reports: no symptoms reported Eyes: reports: no symptoms reported Ears, Nose, Mouth & Throat: reports: no symptoms reported Cardiovascular: reports: see HPI, chest pain. denies: heart murmur, poor circulation, PND Respiratory: reports: see HPI, shortness of breath. denies: chronic cough, cough, hemoptysis Gastrointestinal: reports: no symptoms reported Genitourinary: reports: no symptoms reported Musculoskeletal: reports: no symptoms reported Integumentary: reports: no symptoms reported Neurological: reports: no symptoms reported Psychiatric: reports: no symptoms reported Endocrine: reports: no symptoms reported Hematologic/Lymphatic: reports: no symptoms reported Allergic/Immunologic: reports: no symptoms reported All Other Systems: Reviewed and Negative Past History - Adult - PAST MEDICAL HISTORY-ADULT Review of Records: reports: Old Records Reviewed, Nursing Assessment Review, Medications Reviewed, Social history reviewed & non-contributory. Major Childhood Illnesses: reports: denies history Cardiovascular: reports: arrhythmia (svt), HTN, palpitations Respiratory: reports: denies history Gastrointestinal: reports: denies history Obstetrical/Gynecological: reports: denies history Genitourinary: reports: denies history Musculoskeletal: reports: denies history Neurological: reports: denies history Endocrine/Immune: reports: denies history Other Conditions: reports: denies history - PRIOR SURGERIES/PROCEDURES Surgical/Procedure History: reports: reviewed, not pertinent, orthopedic (extremity) (arthroscopy), other (skin graft) - PRIOR HOSPITALIZATIONS Prior Hospitalizations: reports: for other non-related - IMMUNIZATION STATUS Childhood Immunizations: See Nurse Assessment Flu Vaccine: See Nurse Assessment - FAMILY HISTORY Family History: reviewed, not pertinent - SOCIAL HISTORY Smoking: other (former smoker) Substance Use: none/never Physical Exam-General - PHYSICAL EXAM-ADULT Initial Vital Signs Reviewed: Yes - CONSTITUTIONAL General Appearance: appears well, alert, no apparent distress - EYES Eyes: PERRL/EOMI, pink conjunctivae - HEAD, EARS, NOSE, MOUTH & THROAT HENMT: normocephalic/atraumatic, moist mucous membranes, normal ENT inspection - NECK Neck: non-tender, full range of motion, supple, normal inspection - RESPIRATORY Respiratory: chest non-tender, lungs clear, normal breath sounds - CARDIOVASCULAR Cardiovascular: normal peripheral pulses, regular rate, rhythm - GASTROINTESTINAL (ABDOMEN) Abdominal Exam: normal bowel sounds, non tender, soft - LYMPHATIC Lymphatic: no adenopathy - MUSCULOSKELETAL Back Exam: normal inspection, no CVA tenderness, no vertebral tenderness Extremity: normal range of motion, non-tender, normal inspection Peripheral Pulses: radial (R): 2+, radial (L): 2+ - SKIN Integumentary: normal color, normal turgor, warm/dry - NEUROLOGIC 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, grossly normal, no motor/sensory deficits - PSYCHIATRIC Psych/Mental Status: normal mood/affect, normal thought content, normal thought process, oriented x 3 - HEART Score HEART Score: History: Moderately Suspicious HEART Score: ECG: Significant ST-Deviation HEART Score: Age: 45-65 Years HEART Score: Risk Factors for Atherosclerotic Disease: 1 or 2 Risk Factors HEART Score: Troponin: < or = Normal Limit Total HEART Score:: 5 Progress - PLAN OF CARE/RESULTS Progress/Plan/Lab Results: Vital Signs - 8 hr 03/17/19 20:40 03/17/19 22:09 03/17/19 22:49 Temperature 98.2 F Pulse Rate 95 H 100 H 98 H Respiratory Rate 16 15 18 Blood Pressure 153/95 162/105 166/113 O2 Sat by Pulse Oximetry 96 95 95 03/18/19 00:34 Temperature Pulse Rate 87 Respiratory Rate 20 Blood Pressure 160/115 O2 Sat by Pulse Oximetry 100 Laboratory Results - last 24 hr 03/17/19 03/17/19 03/17/19 20:55 20:55 20:55 WBC RBC Hgb Hct MCV MCH MCHC RDW Std Deviation Plt Count MPV Immature Gran % (Auto) Neut % (Auto) Lymph % (Auto) Cecil % (Auto) Eos % (Auto) Baso % (Auto) Immature Gran # (Auto) Neut # (Auto) Lymph # (Auto) Cecil # (Auto) Eos # (Auto) Baso # (Auto) PT INR PTT (Actin FS) Sodium 144 Potassium 3.5 Chloride 102 Carbon Dioxide 24 L Anion Gap 17 BUN 11 Creatinine 0.8 Estimated GFR/1.73 m2 > 60 BUN/Creatinine Ratio 14 Glucose 115 H Calculated Osmolality 287 Calcium 9.4 Creatine Kinase 158 Troponin T < 0.010 Gax-S-Uricnwjorkf Pept 352 H 03/17/19 03/17/19 03/17/19 20:55 20:55 22:48 WBC 6.75 RBC 4.57 L Hgb 14.2 Hct 41.2 L MCV 90.2 MCH 31.1 H MCHC 34.5 RDW Std Deviation 13.2 Plt Count 235 MPV 9.4 Immature Gran % (Auto) 0.1 Neut % (Auto) 62.7 Lymph % (Auto) 28.0 Cecil % (Auto) 7.6 Eos % (Auto) 1.3 Baso % (Auto) 0.3 Immature Gran # (Auto) 0.01 Neut # (Auto) 4.23 Lymph # (Auto) 1.89 Cecil # (Auto) 0.51 Eos # (Auto) 0.09 Baso # (Auto) 0.02 PT 12.1 INR 0.85 PTT (Actin FS) 28.0 Sodium Potassium Chloride Carbon Dioxide Anion Gap BUN Creatinine Estimated GFR/1.73 m2 BUN/Creatinine Ratio Glucose Calculated Osmolality Calcium Creatine Kinase 145 Troponin T Szp-K-Bwtcprzlobr Pept 03/17/19 22:48 WBC RBC Hgb Hct MCV MCH MCHC RDW Std Deviation Plt Count MPV Immature Gran % (Auto) Neut % (Auto) Lymph % (Auto) Cecil % (Auto) Eos % (Auto) Baso % (Auto) Immature Gran # (Auto) Neut # (Auto) Lymph # (Auto) Cecil # (Auto) Eos # (Auto) Baso # (Auto) PT INR PTT (Actin FS) Sodium Potassium Chloride Carbon Dioxide Anion Gap BUN Creatinine Estimated GFR/1.73 m2 BUN/Creatinine Ratio Glucose Calculated Osmolality Calcium Creatine Kinase Troponin T < 0.010 Jkn-N-Dtnofyumzbh Pept Orders Category Date Time Status CHEST-PORTABLE [RAD] Stat Exams 03/17/19 21:14 Completed BASIC METABOLIC PANEL [CHEM] Stat Lab 03/17/19 20:55 Completed CBC WITH ELECTRONIC DIFF [HEME] Stat Lab 03/17/19 20:55 Completed CK PROFILE [SP CHEM] Stat Lab 03/17/19 20:55 Completed CK PROFILE [SP CHEM] Stat Lab 03/17/19 22:48 Completed PRO B-NATRIURETIC PEPTIDE Stat Lab 03/17/19 20:55 Completed PT [PROTIME WITH INR] [COAG] Stat Lab 03/17/19 20:55 Completed PTT [COAG] Stat Lab 03/17/19 20:55 Completed TROPONIN T Stat Lab 03/17/19 20:55 Completed TROPONIN T Stat Lab 03/17/19 22:48 Completed Aspirin Med 03/17/19 20:43 Discontinued 325 mg .ROUTE .STK-MED ONE Aspirin Med 03/17/19 20:46 Discontinued 325 mg PO NOW ONE Aspirin Med 03/17/19 20:45 Discontinued 81 mg PO NOW ONE Nitroglycerin Med 03/18/19 00:25 Discontinued 1 inch TOP NOW ONE EKG [EKG] Stat Ther 03/17/19 20:46 Draft EKG [EKG] Stat Ther 03/17/19 22:44 Draft Result Diagrams: 03/17/19 20:55 03/17/19 20:55 - EKG 1 Time of EKG reading by physician:: 20:45 EKG Read and Signed by:: Alon Gilmore EKG Interpretation (*Must complete 3 of following elements*): Abnormal Rate: 96 (possible left atrial enlargement ) Rhythm: NSR [place]: right [place] Interval: normal ST Wave: normal Comments: prolonged qt 2 Time of EKG reading by physician:: 23:07 EKG Read and Signed by:: Alon Gilmore EKG Interpretation (*Must complete 3 of following elements*): Abnormal Rate: 94 (poss left atrial enlargement ) Rhythm: NSR [place]: normal QRS: normal [place] Interval: normal ST Wave: normal Prior EKG Comparison: changes noted Comments: prolonged qt - XRAY 1 XRAY Study: Chest (EXAM: CHEST-PORTABLE HISTORY: CP TECHNIQUE: Portable chest single view COMPARISON: 03/07/2019 FINDINGS: The lungs are well expanded. The heart is mildly prominent. The vessels are not distended. There are no infiltrates. No effusion identified. IMPRESSION: Mildly prominent heart. Electronically signed by Alan Kelly 03/17/2019 9:47 PM) Impression: Normal - CONSULTS/PCP/HOSPITALIST Notification #1 *Consult/PCP/Hospitalist*: Dr. Novak Time Discussed: 00:42 Reason/Comments: Dr. Novak will accept pt Consult Disposition: Admit Departure - Departure Date of Disposition Decision: 03/18/19 Time of Disposition Decision: 01:05 DIAGNOSIS: Chest pain Disposition: ADMITTED INPATIENT 09 Certified Medical Emergency: Emergent Condition: Stable Referrals and Follow-Ups: None,PCP [Primary Care Provider] - - Critical Care Note This patient required my direct & personal management of CC.: No Attestation - Physician/ ELIANA Attestation Patient care was provided by Advanced Practice Provider:: No The physician spent face to face time with patient:: Yes Advanced Practice Provider documentation review:: Supervising physician onsite and consulted in the evaluation and care of this patient. The physician did have a face to face encounter with the patient. This chart was documented by the indicated scribe, (Alice Alvarenga Scribe) and accurately reflects the services I performed and decisions made by me, Alon Gilmore MD, as attested by the provider's signature.
[2019-03-18] MEDS ORDERED: CATAPRES PO ONE (03:19)
[2019-03-18] MEDS ORDERED: TYLENOL PO PRN (04:53)
[2019-03-18] MEDS ORDERED: TORADOL IV PRN (04:53)
[2019-03-18] MEDS ORDERED: MORPHINE IV PRN (04:53)
[2019-03-18] MEDS ORDERED: IMDUR PO SCH (09:45)
[2019-03-18] MEDS ORDERED: PRINIVIL PO SCH (09:45)
[2019-03-18] MEDS ORDERED: ASPIRIN PO SCH (09:45)
[2019-03-18] MEDS ORDERED: TOPROL XL PO SCH (09:45)
[2019-03-18] MEDS ORDERED: MAG-OX PO SCH (09:45)
[2019-03-18] MEDS ORDERED: LASIX PO SCH (09:45)
[2019-03-18] MEDS ORDERED: LANOXIN PO SCH (09:45)
--- NOTE | 2019-03-18 10:18 | HISTORY AND PHYSICAL ---
PRIMARY CARE PHYSICIAN: None. TRAINING TECHNICIAN: Dr. Luis Enrique Joshi. CHIEF COMPLAINT: Chest pain. HISTORY OF PRESENTING ILLNESS: This is a 59-year-old male, who presented to [facility] ER with upper sternal chest pain that radiated to his neck, that began approximately 2 hours prior to arriving. He states he had some associated diaphoresis, rated the pain at 8/10 on arrival, but currently states he is no longer having any chest pain. It is noted that he was admitted to the hospital on 02/27/2019 through 02/28/2019 with chest pain, had a complete cardiac workup including a myocardial perfusion scan, and was found to have a stable stress test and was discharged home. He states he saw Dr. Joshi at the end of the month of February and has another appointment scheduled for the end of this month in March. His workup showed cardiac enzymes x3 sets were negative. His EKG showed normal sinus rhythm at 96. He was admitted for further evaluation and treatment. PAST MEDICAL HISTORY: The past medical history includes SVT and hypertension. PAST SURGICAL HISTORY: Skin graft and arthroscopy. FAMILY HISTORY: Reviewed and noncontributory. SOCIAL HISTORY: Currently lives alone. No tobacco use, but is a former smoker, and denied any alcohol or illicit drug use. ALLERGIES: He has no known drug allergies. HOME MEDICATIONS: Aspirin 81 mg p.o. daily. Digoxin 125 mcg p.o. daily. Lasix 20 mg p.o. daily. Imdur 30 mg p.o. daily. Prinivil 20 mg p.o. daily. Magnesium 400 mg p.o. daily. Toprol 200 mg p.o. daily. DIAGNOSTIC DATA: The laboratory data showed a white blood cell count of 6.75, hemoglobin of 14.2, hematocrit 41.2, and platelets 235,000. PT and INR of 12.1 and 0.85. Sodium of 144, potassium 3.5, chloride 102, CO2 24, BUN of 11, creatinine 0.8, glucose 115. Cardiac enzymes x3 sets were negative. ProBNP of 352. EKG showed normal sinus rhythm at 96. Chest x-ray showed a mildly prominent heart. REVIEW OF SYSTEMS: He denied any fever, chills, blurred vision, or dizziness. He was positive for upper sternal chest pain that radiated to his neck, and diaphoresis. Denied any abdominal pain, constipation, diarrhea, burning or hurting with urination. PHYSICAL EXAMINATION: VITALS: On arrival he had a temperature of 98.2 degrees, pulse 95, respirations 16, blood pressure 153/95, saturating 96% on 2 L via nasal cannula. GENERAL: This is a 59-year-old male who is lying in the bed and answers questions appropriately. HEENT: Normocephalic, atraumatic. Normal ENT inspection. Oropharynx and nares are clear. Eyes, pupils are equal, round, and reactive to light and accommodation. Extraocular movements are intact. NECK: Normal inspection. Normal range of motion. LUNGS: Clear to auscultation bilaterally with equal lung expansion and chest wall movement. HEART: With regular rate and rhythm. No murmurs, rubs, or gallops. ABDOMEN: Soft, nontender, nondistended. Bowel sounds are present x4 quadrants. MUSCULOSKELETAL: He has 5/5 strength x4 extremities. NEUROLOGIC: Cranial nerves 2-12 appear grossly intact. ASSESSMENT: 1. Chest pain. 2. Hypertension, history of. PLAN: He was admitted to the medical unit at [place], placed on telemetry. We completed his 3 series of troponins that were negative. We did give him Toradol 15 mg IV q.4 hours p.r.n., and morphine 2 mg IV q.2 hours p.r.n. We continued him on his home medications. Further orders after seen by attending. Again, he had a complete cardiac workup during his admission in February so no further workup will be done at this time. Dictated by ARNOL Manriquez for Doc Reed MD Addendum: Patient seen and examined by myself. Agree with ARNOL note. It reflects my assessment and plan. Patient is being admitted to hospital for chest pain. He had a recent Lexiscan done few months ago. Considering he had 3 sets of troponins negative will discharge with a cardiology follow up in 2 weeks. cc: ARNOL Manriquez MD Peter Johnson, MD MTDD
[2019-03-18 12:43] VITALS: BP 166/101
--- NOTE | 2019-03-18 20:04 | DISCHARGE SUMMARY ---
ADMISSION DATE: 03/18/2019 DISCHARGE DATE: 03/18/2019 PRIMARY CARE PHYSICIAN: None. PLUG SHAPER HAND: Dr. Joshi. ADMISSION DIAGNOSES: 1. Chest pain. 2. Hypertension history of. DISCHARGE DIAGNOSES: 1. Chest pain resolved. 2. Hypertension. SUMMARY OF FINDINGS: This is a 59-year-old male who presented to the ER with complaints of upper sternal chest pain radiating to his neck that began approximately 2 hours prior to arriving, had some associated diaphoresis and rated the pain an 8/10. His heart score was 5. He had a complete workup during his previous admission on 02/26 through 02/28/2019 ruled out with a stress test, followed up with Dr. Joshi at the end of February and states he has a followup appointment scheduled for the end of this month. He was ruled out with 3 negative troponins. His EKG showed normal sinus rhythm at 96 so it is felt that he can safely be discharged home to follow up with Dr. Joshi, his credit representative as scheduled. DISCHARGE MEDICATIONS: He will continue his home medications of aspirin 81 mg p.o. daily, digoxin 125 mcg p.o. daily, Lasix 20 mg p.o. daily, isosorbide 30 mg p.o. daily, lisinopril 20 mg p.o. daily, magnesium 400 mg p.o. daily, metoprolol 200 mg p.o. daily. FOLLOWUP: He will keep his followup appointment with Dr. Joshi as scheduled for the end of this month. TIME SPENT: 33 minutes. Dictated by ARNOL Manriquez for Doc Reed MD Addendum: Patient seen and examined by myself. Agree with ARNOL note. It reflects my assessment and plan. Patient is being discharged in stable condition. Will be seen by his credit representative as already scheduled. cc: MD Doc Cortes MD MTDD
== END 2019-03-18 14:16 | disposition home or self-care (01) ==
LOC: P.MEDSURG 20:38 → P.ED 20:38
PROVIDERS: ATTEND Internal Medicine
CPT/HCPCS: 71010; 71045; 80048; 82550; 83880; 84484; 85025; 85610; 85730; 93005; A9270